=== PATIENT | male | born 1960 | race Caucasian/White ===

== ENCOUNTER → 2018-03-17 | Outpatient (CLI) | payer OTHER ==
[2018-03-17 14:05] LABS: ALBUMIN/GLOBULIN RATIO 1.29 (1.00-1.93); ALKALINE PHOSPHATASE 70 U/L (45-117); ALT/SGPT 39 U/L (12-78); ANION GAP 11 MEQ/L (8-16); AST/SGOT 17 U/L (7-37); BILIRUBIN,TOTAL 0.6 MG/DL (0.2-1.0); BLOOD UREA NITROGEN 15 MG/DL (7-18); CARBON DIOXIDE LEVEL 25 MEQ/L (21-32); CHLORIDE LEVEL 108 MEQ/L (98-107); CHOLESTEROL LEVEL 184 MG/DL (<200); CHOLESTEROL RISK RATIO 2.875 (<5); CREATININE FOR GFR 0.89 MG/DL (0.70-1.30); GLOMERULAR FILTRATION RATE > 60.0 (>56); GLUCOSE, FASTING 90 MG/DL (70-100); HDL CHOLESTEROL 64 MG/DL (>40); LDL CHOLESTEROL 105 MG/DL (<100); NON-HDL-C 120 MG/DL; POTASSIUM SERUM 4.3 MEQ/L (3.5-5.1); SODIUM LEVEL 144 MEQ/L (136-145); TOTAL PROTEIN 7.1 GM/DL (6.4-8.2); TRIGLYCERIDES LEVEL 74 MG/DL (<150)
== END ==
LOC: M WUC 09:47
DX: E78.5 Hyperlipidemia, unspecified (principal); I10 Essential (primary) hypertension
CPT/HCPCS: 80053

== ENCOUNTER → 2018-03-17 | Outpatient (CLI) | payer OTHER ==
[2018-03-18 14:20] LABS: PSA TOTAL 19.7 ng/mL (0.0-4.0)
== END ==
LOC: M WUC 09:44
DX: R97.20 Elevated prostate specific antigen [PSA] (principal)
CPT/HCPCS: 84154

== ENCOUNTER 2018-04-09 13:03 | Day surgery (SDC) | payer OTHER ==
[2018-04-09] MEDS: NS 1,000 ML IV (13:29)
[2018-04-09] MEDS ORDERED: PROPOFOL 200 MG/20 ML VIAL As Ordered (14:58)
[2018-04-09] MEDS ORDERED: LIDOCAINE 2% INJ 100 MG/5 ML SDV (FOR ANES.) As Ordered (14:58)
== END 2018-04-09 15:37 | disposition home or self-care (01) ==
LOC: M OPP 15:37
DX: K22.70 Barrett's esophagus without dysplasia (principal); I10 Essential (primary) hypertension; E78.5 Hyperlipidemia, unspecified; K21.9 Gastro-esophageal reflux disease without esophagitis; R12 Heartburn; N40.1 Benign prostatic hyperplasia with lower urinary tract symptoms; N41.1 Chronic prostatitis; Z80.0 Family history of malignant neoplasm of digestive organs; Z80.8 Family history of malignant neoplasm of other organs or systems; Z88.0 Allergy status to penicillin; Z91.013 Allergy to seafood; Z79.899 Other long term (current) drug therapy
CPT/HCPCS: 43239

== ENCOUNTER → 2018-04-29 | Outpatient (CLI) | payer OTHER ==
[2018-05-01 00:08] LABS: PSA TOTAL 24.1 ng/mL (0.0-4.0)
== END ==
LOC: M WUC 10:24
DX: R97.20 Elevated prostate specific antigen [PSA] (principal)
CPT/HCPCS: 84154

== ENCOUNTER → 2021-05-24 | Outpatient (CLI) | payer OTHER ==
[~2021-05-24] MED LIST: ATOR1TAB21 PO; DOXY100C3 PO; FLOM0.4C39 PO; LEVO500T4 PO; NAPR220C14 PO; OMEP1CAP73 PO; TERA5CAP3 PO
== END ==
LOC: M LABSMTC 09:12
PROVIDERS: ATTEND Anesthesiology
DX: Z01.812 Encounter for preprocedural laboratory examination (principal); Z20.822 Contact with and (suspected) exposure to COVID-19

== ENCOUNTER 2021-05-29 12:22 | Day surgery (SDC) | payer OTHER ==
[~2021-05-29] VITALS: Ht 167.6 cm; Wt 95.2 kg
[~2021-05-29 12:22] MED LIST changes: -DOXY100C3 PO; -FLOM0.4C39 PO; +LEVO500T3 PO; -LEVO500T4 PO; -NAPR220C14 PO; +NS 1,000 ML IV ONE
[2021-05-29] MEDS ORDERED: GLYCOPYRROLATE INJ 0.2 MG/ML 2 ML VIAL As Ordered ONE ×2 (14:33→14:34)
[2021-05-29] MEDS ORDERED: LIDOCAINE 2% 100MG/5ML SDV (FOR ANES.) As Ordered ONE (14:33)
[2021-05-29] MEDS ORDERED: propofoL 200 MG/20 ML VIAL As Ordered ONE ×2 (14:34→14:40)
--- NOTE | 2021-05-29 14:52 | ROOR ---
Patient Name: Andres Vargas Procedure Date: 05/29/2021 2:36 PM Date of : 1960 Age: 61 Room: [facility] Gender: Male Note Status: Finalized Procedure: Upper GI endoscopy Indications: Surveillance for malignancy due to personal history of Montano's esophagus, Heartburn Providers: Kyle Degroot MD Referring MD: MAI MELO MD Requesting Provider: Medicines: Monitored Anesthesia Care Complications: No immediate complications. Procedure: Pre-Anesthesia Assessment: - The heart rate, respiratory rate, oxygen saturations, blood pressure, adequacy of pulmonary ventilation, and response to care were monitored throughout the procedure. The Endoscope was introduced through the mouth, and advanced to the second part of duodenum. The upper GI endoscopy was accomplished without difficulty. The patient tolerated the procedure well. Findings: The esophagus and gastroesophageal junction were examined with white light and narrow band imaging (NBI) from a forward view and retroflexed position. There were esophageal mucosal changes consistent with short-segment Montano's esophagus. These changes involved the mucosa at the upper extent of the gastric folds (36 cm from the incisors) extending to the Z-line (34 cm from the incisors). [place]-colored mucosa was present and no visible abnormalities were present. The maximum longitudinal extent of these esophageal mucosal changes was 2 cm in length. Mucosa was biopsied with a cold forceps for histology. One specimen bottle was sent to pathology. A small hiatal hernia was present. The entire examined stomach was normal. The examined duodenum was normal. Impression: - Esophageal mucosal changes consistent with short-segment Montano's esophagus (2 cm, smooth, no nodularity). Biopsied. - Small hiatal hernia. - Normal stomach. - Normal examined duodenum. Recommendation: - Await pathology results. - Telephone endoscopist for pathology results in 2 weeks. - Repeat upper endoscopy in 3 years for surveillance of Montano's esophagus. - Use Prilosec (omeprazole) 20 mg PO daily indefinitely. Procedure Code(s): --- Professional --- 10698, Esophagogastroduodenoscopy, flexible, transoral; with biopsy, single or multiple Diagnosis Code(s): --- Professional --- R12, Heartburn K44.9, Diaphragmatic hernia without obstruction or gangrene K22.70, Montano's esophagus without dysplasia CPT copyright 2019 [employer]. All rights reserved. The codes documented in this report are preliminary and upon stem crusher review may be revised to meet current compliance requirements. Kyle Degroot MD Kyle Degroot MD 05/29/2021 2:52:00 PM Electronically signed by Kyle Degroot MD Number of Addenda: 0 Note Initiated On: 05/29/2021 2:36 PM Estimated Blood Loss: Estimated blood loss: none.
[2021-05-29 15:20] VITALS: BP 182/102
== END 2021-05-29 15:50 | disposition home or self-care (01) ==
LOC: M OPP 12:22
PROVIDERS: ATTEND Internal Medicine Gastroenterology
DX: K22.70 Barrett's esophagus without dysplasia (principal); K44.9 Diaphragmatic hernia without obstruction or gangrene; R12 Heartburn; Z80.0 Family history of malignant neoplasm of digestive organs; Z79.899 Other long term (current) drug therapy; Z88.0 Allergy status to penicillin; Z91.013 Allergy to seafood

== ENCOUNTER 2021-06-01 22:41 | Inpatient (IN) | payer OTHER ==
[~2021-06-01] VITALS: Ht 167.6 cm; Wt 94.4 kg
[~2021-06-01 22:41] MED LIST changes: -NS 1,000 ML IV ONE
[2021-06-02 00:35] VITALS: BP 163/92
--- NOTE | 2021-06-02 00:54 | HPEPDOC ---
[facility] Medical History & Physical Date of Admission Jun 02, 2021 Date of Service: Jun 02, 2021 History and Physical CHIEF COMPLAINT: urinary retention HISTORY OF PRESENT ILLNESS: 61 yo M with a PMHx of HTN, GERD/Montano's esophagus, BPH, was transferred from [place] [facility] to [facility] for urology evaluation. Patient developed dysuria, lower abdominal pain and incomplete voiding on 05/31/21, the day after he underwent an EGD for eval of his Montano's esophagus. He went to his PCP office, where he was prescribed a course of doxycycline and aleve for pain control. His abdominal pain became worse, and he was unable to void. On arrival to ER at [place], bladder scan showed ~ 850cc of urine. A fo sharon catheter was inserted and drained 925 cc of urine. Patient's chemistry panel revealed a Cr 6.2; BUN 47 and a GFR 10. He had a mild leukocytosis of 13.4. Urinalysis revealed microscopic hematuria but otherwise no markers of infection. Renal US showed mild hydronephrosis of the L kidney, and a 17 mm peripheral upper pole calculus. CT abdomen pelvis showed L hydroureteronephrosis to the level proximal ureter without ductal obstructive process. There is also mildly dilated distal right and left ureters with periureteral stranding. Patient is been under hospitalist service with urology consultation; Dr. Esparza was contacted and will see the patient in the morning. Of note, patient does report a history of BPH, presently on Terazosin. He states he had a prostate biopsy approximately 1.5 years ago in [place] and has previously been followed [facility] in [place]. He also reports a history of elevated PSA in the 20 range. He does not have a family history of prostate cancer. PAST MEDICAL HISTORY: HTN GERD BPH PAST SURGICAL HISTORY: prostate bx 1.5 years ago in [place], [place] SOCIAL HISTORY: Denies smoking, illicit drug use occasional glass of wine with dinner FAMILY HISTORY: Brother - esophageal cancer, ALLERGIES: Please see below. REVIEW OF SYSTEMS: 10 point ROS conducted, relevant findings are noted in HPI HOME MEDICATIONS: Please see below. PHYSICAL EXAMINATION: VITAL SIGNS: please see below General: NAD, comfortable HEENT: PERRLA, EOMI, sclerae clear Neck: supple, normal ROM, no JVD Respiratory: lungs CTAB, no wheeze, no rales, no crackles CVS: RRR, normal S1, S2, no murmurs Abdo: soft, no masses, no hepatosplenomegaly, BS+, no rebound tenderness Extremities: no edema, pulses 2+ MSK: no joint deformities, normal ROM Neuro: no focal neuro deficits, moving all 4 extremities, CN2-12 intact. Strength 5/5 in all 4 extremities. No nystagmus. Psych: calm, cooperative, AAO x 3 LABORATORY DATA: See below. MICROBIOLOGY: Please see below. ASSESSMENT: 61 yo M with a PMHx of HTN, GERD/Montano's esophagus, BPH, was transferred from [facility] to [facility] for urology evaluation due to urinary retention likely from bladder outlet obstruction, resulting in L hydronephrosis and acute renal failure. . PLAN: #Acute renal failure 2/2 likely bladder obstruction vs ureteral stones resulting in L hydroureteronephrosis - unable to void for ~48 hours, severe suprapubic abdominal pain - bladder scan 850cc. Rothman inserted, drained 925 cc clear urine. Microscopic hematuria - patient has been on doxycycline, UA negative for infection - at [place] chemistry shows Cr 6.2. BUN 47. GFR 10 - Mild leukocytosis 13.5. - Renal US showed L hydronephrosis; bilateral distal dilation of ureters, R upper pole coretx calculus non obstructing - Urology consult placed, d/w Dr. Esparza - keep rothman in place. C/w IVF hydration, NS 150 cc/hr - repeat BMP shows Cr 2.05. UA showing mild pyuria. - will start on ceftriaxone. Patient was previously prescribed doxy by his PCP due to dysuria. - repeat BMP - started patient on flomax. Will continue terazosin for now - ordered PSA for AM. - will avoid use of finasteride, until definitive biopsy if indicated to r/o malignancy - will await final recs from urology - NPO overnight in event of possible surgical intervention #HTN - takes terazosin #GERD/Montano's esophagus - s/p EGD by Dr. Degroot on 05/29/21 - reviewed path report: intestinal metaplasia, negative for dysplasia DVT ppx - SCDs. TEDs. Home Medications Scheduled Doxycycline Hyclate (Doxycycline Hyclate) 100 Mg Capsule, 100 MG PO BID STARTED 05/30/21 X 21 DAYS Omeprazole (Omeprazole) 20 Mg Cap, 20 MG PO DAILY Terazosin HCl (Terazosin HCl) 5 Mg Cap, 5 MG PO BID Scheduled PRN Naproxen Sodium (Aleve) 220 Mg Capsule, 220 MG PO BID PRN for PAIN Allergies Coded Allergies: Penicillins (Verified Allergy, Unknown, 05/23/21) Shrimp (Verified Allergy, Unknown, hives around neck, 05/23/21) A-FIB/CHADSVASC A-FIB History Current/History of A-Fib/PAF?: No BEVERLY SIU MD Jun 02, 2021 00:54
[2021-06-02] MEDS ORDERED: ACETAMINOPHEN TAB 650MG DOSE (2X325MG) PO PRN (00:55)
[2021-06-02] MEDS ORDERED: MOM 30ML SUSPENSION UDC PO PRN (00:55)
[2021-06-02] MEDS ORDERED: MAALOX 30 ML SUSP *UDC PO PRN (00:55)
[2021-06-02] MEDS ORDERED: NAPR220C14 PO (01:23)
[2021-06-02] MEDS ORDERED: DOXY100C3 PO (01:23)
[2021-06-02] MEDS ORDERED: HOME MED LIST COMPLETE! XX SCH (01:25)
[2021-06-02] MEDS: NS 1,000 ML IV SCH ×3 (01:27→16:59)
[2021-06-02 02:36] LABS: BASO % 0.5 % (0.0-1.0); EOS # 0.2 10^3/uL (0.0-0.5); EOS % 2.4 % (0.0-3.0); HEMATOCRIT 39.4 % (42.0-52.0); HEMOGLOBIN 13.1 g/dl (13.5-17.5); LYMPH % 12.4 % (24.0-44.0); MEAN CORPUSCULAR HEMOGLOBIN 30.3 pg (27.0-33.0); MEAN CORPUSCULAR HGB CONC 33.2 g/dl (32.0-36.5); MONO # 0.9 10^3/uL (0.0-0.8); MONO % 10.2 % (2.0-8.0); NEUTROPHILS # 6.2 10^3/uL (1.5-8.5); NEUTROPHILS % 74.1 % (36.0-66.0); PLATELET COUNT, AUTOMATED 238 10^3/uL (150-450); RED BLOOD COUNT 4.33 10^6/uL (4.30-6.10); WHITE BLOOD COUNT 8.4 10^3/uL (4.0-10.0)
[2021-06-02 03:02] LABS: CALCIUM LEVEL 8.2 MG/DL (8.8-10.2); CREATININE FOR GFR 2.05 MG/DL (0.70-1.30); GLOMERULAR FILTRATION RATE 35.4 (>49); POTASSIUM SERUM 4.3 MEQ/L (3.5-5.1); TOTAL PROTEIN 6.2 GM/DL (6.4-8.2)
[2021-06-02] MEDS ORDERED: cefTRIAXone SOD 1 GM in D5W MINI-BAG PLUS 50 ML IV SCH (04:00)
[2021-06-02] MEDS: CIPROFLOXACIN 400 MG in IV 1 EA IV SCH ×2 (04:53→18:25)
[2021-06-02 06:00] VITALS: BP 142/84
[2021-06-02] MEDS: OMEPRAZOLE 20 MG CAP PO SCH (08:40)
[2021-06-02] MEDS: TAMSULOSIN 0.4 MG CAP PO SCH (08:42)
[2021-06-02] MEDS: TERAZOSIN 5MG CAPSULE PO SCH ×2 (08:42→20:16)
--- NOTE | 2021-06-02 11:23 | IPNPDOC ---
Text Note Date of Service The patient was seen on 06/02/21. NOTE SUBJECTIVE: -No acute events overnight OBJECTIVE: VITAL SIGNS: please see below General: NAD, comfortable HEENT: PERRLA, EOMI, sclerae clear Neck: supple, normal ROM, no JVD Respiratory: lungs CTAB, no wheeze, no rales, no crackles CVS: RRR, normal S1, S2, no murmurs Abdo: soft, no masses, no hepatosplenomegaly, BS+, no rebound tenderness Extremities: no edema, pulses 2+ MSK: no joint deformities, normal ROM Neuro: no focal neuro deficits, moving all 4 extremities, CN2-12 intact. Strength 5/5 in all 4 extremities. No nystagmus. Psych: calm, cooperative, AAO x 3 LABORATORY DATA: Reviewed MICROBIOLOGY: Please see below. ASSESSMENT: 61 yo M with a PMHx of HTN, GERD/Montano's esophagus, BPH, was transferred from [facility] to [facility] for urology evaluation due to urinary retention likely from bladder outlet obstruction, resulting in L hydronephrosis and acute renal failure. . PLAN: #Acute renal failure 2/2 likely bladder obstruction vs ureteral stones resulting in L hydroureteronephrosis - unable to void for ~48 hours, w/ severe suprapubic abdominal pain - Rothman inserted, drained 925 cc clear urine w/ microscopic hematuria - patient has been on doxycycline? of a presumed UTI - at [place] chemistry showed Cr 6.2. BUN 47. GFR 10 - Mild leukocytosis 13.5. Will continue cipro IV - Renal US showed L hydronephrosis; bilateral distal dilation of ureters, R upp er pole coretx calculus non obstructing - Urology consult placed, d/w Dr. Esparza - keep rothman in place. C/w IVF hydration, NS 150 cc/hr - repeat BMP here showed Cr 2.05. UA showing mild pyuria. - started patient on flomax. Will continue terazosin for now - f/u PSA - will await final recs from urology #potential UTI: -continue cipro as po #GERD/Montano's esophagus - s/p EGD by Dr. Degroot on 05/29/21 - reviewed path report: intestinal metaplasia, negative for dysplasia DVT ppx - SCDs. TEDs. VS,Fishbone, I+O VS, Fishbone, I+O Laboratory Tests 06/02/21 02:21 Vital Signs Date Time Temp Pulse Resp B/P (MAP) Pulse Ox O2 Delivery O2 Flow Rate FiO2 06/02/21 08:42 159/98 06/02/21 06:00 98.0 79 14 96 Room Air I&O- Last 24 Hours up to 6 AM 06/02/21 06:00 Intake Total 1150 ml Output Total 975 ml Balance 175 ml ELIJAH AGUERO MD Jun 02, 2021 09:09
[2021-06-02 14:00] VITALS: BP 153/74
[2021-06-02 22:00] VITALS: BP 155/75
[2021-06-03] MEDS: NS 1,000 ML IV SCH ×2 (00:37→09:10)
[2021-06-03] MEDS: CIPROFLOXACIN 400 MG in IV 1 EA IV SCH (04:07)
[2021-06-03 06:00] VITALS: BP 144/89
[2021-06-03 06:27] LABS: HEMATOCRIT 38.6 % (42.0-52.0); HEMOGLOBIN 12.5 g/dl (13.5-17.5); MEAN CORPUSCULAR HEMOGLOBIN 30.2 pg (27.0-33.0); MEAN CORPUSCULAR HGB CONC 32.4 g/dl (32.0-36.5); MEAN CORPUSCULAR VOLUME 93.2 fl (80.0-96.0); PLATELET COUNT, AUTOMATED 231 10^3/uL (150-450); RED BLOOD COUNT 4.14 10^6/uL (4.30-6.10); WHITE BLOOD COUNT 6.2 10^3/uL (4.0-10.0)
[2021-06-03 06:50] LABS: BLOOD UREA NITROGEN 15 MG/DL (7-18); CALCIUM LEVEL 8.1 MG/DL (8.8-10.2); CARBON DIOXIDE LEVEL 26 MEQ/L (21-32); CHLORIDE LEVEL 114 MEQ/L (98-107); GLOMERULAR FILTRATION RATE > 60.0 (>49); GLUCOSE, FASTING 96 MG/DL (70-100); POTASSIUM SERUM 4.5 MEQ/L (3.5-5.1); SODIUM LEVEL 145 MEQ/L (136-145)
--- NOTE | 2021-06-03 07:21 | SMCUROLCON ---
Urology Consultation General Date of Consultation 06/02/21 Reason For Consultation asked to see re retetion and dong History of Present Illness The patient is a -year-old with a past medical history for . Medications Current Medications Current Medications Medications (Trade) Dose Ordered Sig/Kris Route PRN Reason Start Time Stop Time Status Last Admin Dose Admin Acetaminophen (Tylenol Tab) 650 mg Q4H PRN PO MILD PAIN or TEMP > 101 06/02/21 00:55 Al Hydrox/Mg Hydrox/Simethicone (Mylanta) 30 ml DAILY PRN PO DYSPEPSIA 06/02/21 00:55 Ceftriaxone Sodium 1 gm/ Dextrose 50 ml @ 100 mls/hr Q24H IV 06/02/21 04:00 06/02/21 19:50 DC 06/02/21 03:51 Ciprofloxacin 400 mg/IV Miscellaneous Supplies 200 ml @ 200 mls/hr Q12H IV 06/02/21 05:00 06/03/21 04:07 Home Med (Home Med List Complete!) ASDIRECTED XX 06/02/21 01:25 06/02/21 01:33 DC Magnesium Hydroxide (Milk Of Magnesia) 30 ml DAILY PRN PO CONSTIPATION 06/02/21 00:55 Omeprazole (PriLOSEC) 20 mg DAILY PO 06/02/21 09:00 06/02/21 08:40 Sodium Chloride 1,000 ml @ 150 mls/hr Q6H40M IV 06/02/21 00:55 06/03/21 00:37 Tamsulosin HCl (Flomax) 0.4 mg DAILY PO 06/02/21 09:00 06/02/21 08:42 Terazosin HCl (Hytrin) 5 mg BID PO 06/02/21 09:00 06/02/21 20:16 Allergies Allergies: Coded Allergies: Penicillins (Verified Allergy, Unknown, 05/23/21) Shrimp (Verified Allergy, Unknown, hives around neck, 05/23/21) Vital Signs/I&O Vital Signs Date Time Temp Pulse Resp B/P (MAP) Pulse Ox O2 Delivery O2 Flow Rate FiO2 06/03/21 06:00 97.9 72 18 144/89 (107) 96 Room Air I&O- Last 24 Hours up to 6 AM 06/03/21 05:59 Intake Total 3485 ml Output Total 2600 ml Balance 885 ml Laboratory Data 24H Labs Laboratory Tests 2 06/03/21 05:51: Nucleated Red Blood Cells % (auto) 0.0, Anion Gap 5L, Glomerular Filtration Rate > 60.0, Calcium Level 8.1L CBC/BMP Laboratory Tests 06/03/21 05:51 Microbiology Microbiology 06/02/21 Urine Culture, Received Pending Assessment pt seen yesterday afternoon urinary retention retention after procedure with sedation despite terazosin h/o bph and prostate biopsies dong and hydronephrosis secondary to retention Plan discharge pt with catheter in place continue terazosin and tamsulosin will see pt in the office at which time a voiding trial will be conducted - office will call pt will arrange a local cystoscopy all d/w pt and he agrees thank you [phone] KENNY FARMER MD Jun 03, 2021 07:21
[2021-06-03] MEDS ORDERED: FLOM0.4C39 PO (08:28)
--- NOTE | 2021-06-03 08:38 | DS.PDOC ---
Discharge Summary General Date of Admission Jun 02, 2021 at 00:34 Date of Discharge 06/03/2021 Attending Physician: ELIJAH AGUERO MD Discharge Summary PROCEDURES PERFORMED DURING STAY: None ADMITTING DIAGNOSES: MARY. DISCHARGE DIAGNOSES: Obstructive uropathy MARY BPH HTN GERD mild hydronephrosis of the L kidney 17 mm peripheral upper pole L renal calculus, non-obstructive COMPLICATIONS/CHIEF COMPLAINT: Acute Renal Failure. HISTORY OF PRESENT ILLNESS: 61 yo M with a PMHx of HTN, GERD/Montano's esophagus, BPH, was transferred from [place] ER to [facility] for urology evaluation. Patient developed dysuria, lower abdominal pain and incomplete voiding on 05/31/21, the day after he underwent an EGD for eval of his Montano's esophagus. He went to his PCP office, where he was prescribed a course of doxycycline and aleve for pain control. His abdominal pain became worse, and he was unable to void. On arrival to ER at [place], bladder scan showed ~ 850cc of urine. A rothman catheter was inserted and drained 925 cc of urine. Patient's chemistry panel revealed a Cr 6.2; BUN 47 and a GFR 10. He had a mild leukocytosis of 13.4. Urinalysis revealed microscopic hematuria but otherwise no markers of infection. Renal US showed mild hydronephrosis of the L kidney, and a 17 mm peripheral upper pole calculus. CT abdomen pelvis showed L hydroureteronephrosis to the level proximal ureter without ductal obstructive process. There is also mildly dilated distal right and left ureters with periureteral stranding. HOSPITAL COURSE: He was admitted under hospitalist service with urology consultation and Dr. Esparza was consulted who on evaluation recommended discharge home with rothman to see in urology clinic and to continue his home terazosin and add on flomax. Of note, the patient did report a history of a prostate biopsy approximately 1.5 years ago in [place] and has previously been followed [facility] in [place] and a history of elevated PSA in the 20 range and a family history of prostate cancer, but his biopsy was negative for malignancy. His MARY resolved with relief of the obstruction. He is now being discharged home. OF NOTE, I am NOT sure why Mr. Vargas is on doxycycline for 21 days and I have been able to establish this. I will therefore continue this treatment on discharge as I am unsure what his PCP was treating and would not want to have an incomplete antibiotic course. DISCHARGE MEDICATIONS: Please see below. ALLERGIES: Please see below. PHYSICAL EXAMINATION ON DISCHARGE: VITAL SIGNS: Please see below. General: NAD, comfortable HEENT: PERRLA, EOMI, sclerae clear Neck: supple, normal ROM, no JVD Respiratory: lungs CTAB, no wheeze, no rales, no crackles CVS: RRR, normal S1, S2, no murmurs Abdo: soft, no masses, no hepatosplenomegaly, BS+, no rebound tenderness Extremities: no edema, pulses 2+ MSK: no joint deformities, normal ROM Neuro: no focal neuro deficits, moving all 4 extremities, CN2-12 intact. Strength 5/5 in all 4 extremities. Psych: calm, cooperative, AAO x 3 LABORATORY DATA: Please see below. IMAGING: None inhouse PROGNOSIS: Good ACTIVITY: As tolerated DIET: 2g sodium DISCHARGE PLAN: Home with rothman with close urology follow up. Now on terazosin and flomax per Dr. Esparza. DISPOSITION: Home DISCHARGE INSTRUCTIONS: Home with rothman with close urology follow up. Now on terazosin and flomax per Dr. Esparza. ITEMS TO FOLLOWUP ON ON OUTPATIENT: Urinary obstruction DISCHARGE CONDITION: Stable TIME SPENT ON DISCHARGE: 32 minutes. Vital Signs/I&Os Vital Signs Date Time Temp Pulse Resp B/P (MAP) Pulse Ox O2 Delivery O2 Flow Rate FiO2 06/03/21 06:00 97.9 72 18 144/89 (107) 96 Room Air I&O- Last 24 Hours up to 6 AM 06/03/21 06:00 Intake Total 3135 ml Output Total 2400 ml Balance 735 ml Laboratory Data Labs 24H Laboratory Tests 2 06/03/21 05:51: Nucleated Red Blood Cells % (auto) 0.0, Anion Gap 5L, Glomerular Filtration Rate > 60.0, Calcium Level 8.1L CBC/BMP Laboratory Tests 06/03/21 05:51 Microbiology Microbiology 06/02/21 Urine Culture, Received Pending Discharge Medications Scheduled Doxycycline Hyclate (Doxycycline Hyclate) 100 Mg Capsule, 100 MG PO BID, (Reported) STARTED 05/30/21 X 21 DAYS Omeprazole (Omeprazole) 20 Mg Cap, 20 MG PO DAILY, (Reported) Tamsulosin HCl (Flomax) 0.4 Mg Capsule, 0.4 MG PO DAILY Terazosin HCl (Terazosin HCl) 5 Mg Cap, 5 MG PO BID, (Reported) Scheduled PRN Naproxen Sodium (Aleve) 220 Mg Capsule, 220 MG PO BID PRN for PAIN, (Reported) Allergies Coded Allergies: Penicillins (Verified Allergy, Unknown, 05/23/21) Shrimp (Verified Allergy, Unknown, hives around neck, 05/23/21) ELIJAH AGUERO MD Jun 03, 2021 08:38
[2021-06-03 09:01] VITALS: BP 160/62
[2021-06-03] MEDS: OMEPRAZOLE 20 MG CAP PO SCH (09:01)
[2021-06-03] MEDS: TAMSULOSIN 0.4 MG CAP PO SCH (09:01)
[2021-06-03] MEDS: TERAZOSIN 5MG CAPSULE PO SCH (09:01)
== END 2021-06-03 10:38 | disposition home or self-care (01) | DRG 699 ==
LOC: M MSPAV 06-02 00:34
PROVIDERS: ADMIT Family Medicine; ATTEND Internal Medicine
DX: N13.9 Obstructive and reflux uropathy, unspecified (principal); N17.9 Acute kidney failure, unspecified; R33.9 Retention of urine, unspecified; I10 Essential (primary) hypertension; K21.9 Gastro-esophageal reflux disease without esophagitis; N40.1 Benign prostatic hyperplasia with lower urinary tract symptoms; K22.70 Barrett's esophagus without dysplasia; Z79.899 Other long term (current) drug therapy; Z88.0 Allergy status to penicillin; Z91.013 Allergy to seafood; N20.0 Calculus of kidney

== ENCOUNTER → 2021-10-12 | Outpatient (REF) | payer OTHER ==
[~2021-10-12] MED LIST changes: +DOXY100C3 PO; +FLOM0.4C39 PO; -LEVO500T3 PO; +LEVO500T4 PO; +NAPR220C14 PO
[2021-10-12 14:04] LABS: APPEARANCE, URINE HAZY (CLEAR); BACTERIA, URINE AUTO NEGATIVE (NEGATIVE); BILIRUBIN, URINE AUTO NEGATIVE (NEGATIVE); BLOOD, URINE BLOOD 2+ (NEGATIVE); COLOR, URINE YELLOW (YELLOW); GLUCOSE, URINE (UA) AUTO NEGATIVE (NEGATIVE); KETONE, URINE AUTO NEGATIVE (NEGATIVE); LEUKOCYTE ESTERASE, URINE AUTO 3+ (NEGATIVE); NITRITE, URINE AUTO NEGATIVE (NEGATIVE); PROTEIN, URINE AUTO 1+ mg/dL (NEGATIVE); RBC, URINE AUTO 13 /HPF (0-3); SPECIFIC GRAVITY URINE AUTO 1.013 (1.002-1.035); SQUAMOUS EPITHELIAL CELL UR AU 0 /HPF (0-6); UROBILINOGEN, URINE AUTO 0.2 mg/dL (0.0-2.0); WBC, URINE AUTO 130 /HPF (0-3)
== END ==
LOC: M LAB REF 13:25
PROVIDERS: ATTEND Urology
DX: Z01.818 Encounter for other preprocedural examination (principal); N40.1 Benign prostatic hyperplasia with lower urinary tract symptoms; N13.8 Other obstructive and reflux uropathy

== ENCOUNTER → 2021-10-15 | Outpatient (REF) | payer OTHER | LOC: M LAB REF 16:59 | PROVIDERS: ATTEND Urology | DX: N13.8 Other obstructive and reflux uropathy (principal); N40.1 Benign prostatic hyperplasia with lower urinary tract symptoms ==

== ENCOUNTER → 2022-02-20 | Outpatient (REF) | payer OTHER ==
[~2022-02-20] MED LIST changes: +LEVO1TAB39 PO; -LEVO500T4 PO
== END ==
LOC: M LABWUC 11:26
PROVIDERS: ATTEND Urology
DX: N31.8 Other neuromuscular dysfunction of bladder (principal)

== ENCOUNTER → 2022-10-31 | Outpatient (CLI) | payer OTHER ==
[2022-10-31 13:33] LABS: ALBUMIN 4.2 G/DL (3.2-5.2); ALKALINE PHOSPHATASE 72 U/L (46-116); ALT/SGPT 29 U/L (7.0-40); AST/SGOT 22 U/L (<34); BILIRUBIN,TOTAL 0.8 MG/DL (0.3-1.2); BLOOD UREA NITROGEN 15 MG/DL (9-23); CALCIUM LEVEL 9.6 MG/DL (8.3-10.6); CARBON DIOXIDE LEVEL 26 MMOL/L (20-31); CHLORIDE LEVEL 103 MMOL/L (98-107); CHOLESTEROL LEVEL 243 MG/DL (<200); CHOLESTEROL RISK RATIO 3.52 (<5); GLOMERULAR FILTRATION RATE > 60.0 (>49); GLUCOSE, FASTING 84 MG/DL (74-106); POTASSIUM SERUM 4.9 MMOL/L (3.5-5.1); PROSTATIC SPECIFIC AG MONITOR 0.36 NG/ML (< 4.00); SODIUM LEVEL 137 MMOL/L (136-145); TOTAL PROTEIN 7.1 G/DL (5.7-8.2); TRIGLYCERIDES LEVEL 70 MG/DL (<150)
== END ==
LOC: M WUC 10:48
PROVIDERS: ATTEND Internal Medicine
DX: E78.5 Hyperlipidemia, unspecified (principal); R97.20 Elevated prostate specific antigen [PSA]

== ENCOUNTER → 2023-12-11 | Outpatient (CLI) | payer OTHER | LOC: M CARPUL 08:08 | PROVIDERS: ATTEND Physician Assistant | DX: I63.9 Cerebral infarction, unspecified (principal) ==

== ENCOUNTER → 2024-01-07 | Outpatient (CLI) | payer OTHER | LOC: M PLAIMG 14:04 | PROVIDERS: ATTEND Physician Assistant | DX: I63.9 Cerebral infarction, unspecified (principal); J34.1 Cyst and mucocele of nose and nasal sinus; R90.82 White matter disease, unspecified ==

== ENCOUNTER → 2024-03-29 | Outpatient (CLI) | payer OTHER | LOC: M WUC 08:34 | PROVIDERS: ATTEND Urology | DX: Z12.5 Encounter for screening for malignant neoplasm of prostate (principal) ==

== ENCOUNTER → 2024-03-29 | Outpatient (CLI) | payer OTHER ==
[2024-03-29 10:30] LABS: BASO # 0.1 10^3/uL (0.0-0.2); BASO % 0.8 % (0.0-1.0); EOS # 0.1 10^3/uL (0.0-0.5); EOS % 1.7 % (0.0-3.0); HEMATOCRIT 44.9 % (42.0-52.0); LYMPH # 1.6 10^3/uL (1.5-5.0); LYMPH % 27.1 % (24.0-44.0); MEAN CORPUSCULAR HEMOGLOBIN 30.4 pg (27.0-33.0); MEAN CORPUSCULAR HGB CONC 33.4 g/dl (32.0-36.5); MEAN CORPUSCULAR VOLUME 91.1 fl (80.0-96.0); MONO # 0.5 10^3/uL (0.0-0.8); MONO % 7.8 % (2.0-8.0); NEUTROPHILS # 3.8 10^3/uL (1.5-8.5); NEUTROPHILS % 62.3 % (36.0-66.0); PLATELET COUNT, AUTOMATED 268 10^3/uL (150-450); RED BLOOD COUNT 4.93 10^6/uL (4.30-6.10); WHITE BLOOD COUNT 6.1 10^3/uL (4.0-10.0)
[2024-03-29 10:55] LABS: PROSTATIC SPECIFIC AG MONITOR 0.42 NG/ML (< 4.00)
[2024-03-29 11:01] LABS: ALKALINE PHOSPHATASE 85 U/L (46-116); ALT/SGPT 34 U/L (7.0-40); AST/SGOT 16 U/L (<34); BLOOD UREA NITROGEN 18 MG/DL (9-23); CALCIUM LEVEL 9.4 MG/DL (8.3-10.6); CARBON DIOXIDE LEVEL 27 MMOL/L (20-31); CHLORIDE LEVEL 105 MMOL/L (98-107); CHOLESTEROL LEVEL 171 MG/DL (<200); CHOLESTEROL RISK RATIO 2.72 (<5); CREATININE FOR GFR 1.01 MG/DL (0.70-1.30); GLOMERULAR FILTRATION RATE > 60.0 (>49); GLUCOSE, FASTING 96 MG/DL (74-106); HDL CHOLESTEROL 62.8 MG/DL (>40); LDL CHOLESTEROL 97.8 MG/DL (<100); NON-HDL-C 108.2 MG/DL; POTASSIUM SERUM 4.4 MMOL/L (3.5-5.1); SODIUM LEVEL 140 MMOL/L (136-145); TOTAL PROTEIN 7.3 G/DL (5.7-8.2); TRIGLYCERIDES LEVEL 52 MG/DL (<150)
== END ==
LOC: M WUC 08:32
PROVIDERS: ATTEND Internal Medicine
DX: E78.5 Hyperlipidemia, unspecified (principal); R97.20 Elevated prostate specific antigen [PSA]

== ENCOUNTER 2024-05-31 12:34 | Day surgery (SDC) | payer OTHER ==
[~2024-05-31] VITALS: Ht 167.6 cm; Wt 92.1 kg
[~2024-05-31 12:34] MED LIST changes: +ATOR80TA59 PO; +ECOT81TA5 PO; +OMEP-173 PO
[2024-05-31] MEDS ORDERED: propofoL 200 MG/20 ML VIAL As Ordered ONE (14:20)
[2024-05-31 14:42] VITALS: TEMP 97.7
[2024-05-31 15:05] VITALS: BP 150/81; O2SAT 97
== END 2024-05-31 15:15 | disposition home or self-care (01) ==
LOC: M OPP 12:34
PROVIDERS: ATTEND Internal Medicine Gastroenterology
DX: Z12.89 Encounter for screening for malignant neoplasm of other sites (principal); K21.00 Gastro-esophageal reflux disease with esophagitis, without bleeding; K44.9 Diaphragmatic hernia without obstruction or gangrene; Z87.19 Personal history of other diseases of the digestive system; I10 Essential (primary) hypertension; E78.00 Pure hypercholesterolemia, unspecified; Z86.73 Personal history of transient ischemic attack (TIA), and cerebral infarction without residual deficits; Z79.899 Other long term (current) drug therapy; Z79.82 Long term (current) use of aspirin; Z88.0 Allergy status to penicillin

== ENCOUNTER → 2024-06-02 | Outpatient (REF) | payer OTHER | LOC: M SFHCDERM 16:29 | PROVIDERS: ATTEND Dermatology | DX: L85.9 Epidermal thickening, unspecified (principal); D21.11 Benign neoplasm of connective and other soft tissue of right upper limb, including shoulder ==

== ENCOUNTER 2024-09-07 11:30 | Day surgery (SDC) | payer OTHER ==
[~2024-09-07] VITALS: Ht 167.6 cm; Wt 104.3 kg
[~2024-09-07 11:30] MED LIST changes: +MAGN400C PO; +MULT-40 PO; +VITA100093 PO
[2024-09-07 13:10] VITALS: TEMP 97.7
[2024-09-07 13:40] VITALS: BP 129/68; O2SAT 95
== END 2024-09-07 13:41 | disposition home or self-care (01) ==
LOC: M OPP 11:30
PROVIDERS: ATTEND Internal Medicine Gastroenterology
DX: K21.00 Gastro-esophageal reflux disease with esophagitis, without bleeding (principal); K22.70 Barrett's esophagus without dysplasia; K44.9 Diaphragmatic hernia without obstruction or gangrene; Z88.0 Allergy status to penicillin; Z79.899 Other long term (current) drug therapy

== ENCOUNTER → 2025-04-19 | Outpatient (CLI) | payer OTHER ==
[~2025-04-19] MED LIST changes: -FLOM0.4C39 PO; +TAMS-18 PO
== END ==
LOC: M PLAIMG 11:17
PROVIDERS: ATTEND Physician Assistant
DX: Z86.73 Personal history of transient ischemic attack (TIA), and cerebral infarction without residual deficits (principal); R90.82 White matter disease, unspecified

== ENCOUNTER → 2025-05-13 | Outpatient (CLI) | payer OTHER ==
[2025-05-13 15:13] LABS: ALT/SGPT 34.0 U/L (7.0-40); AST/SGOT 20.0 U/L (<34); CALCIUM LEVEL 9.3 MG/DL (8.3-10.6); CARBON DIOXIDE LEVEL 26.0 MMOL/L (20-31); CHLORIDE LEVEL 105.0 MMOL/L (98-107); CHOLESTEROL LEVEL 161.0 MG/DL (<200); CHOLESTEROL RISK RATIO 2.63 (<5); CREATININE FOR GFR 1.08 MG/DL (0.70-1.30); GLOMERULAR FILTRATION RATE 76.6 (>49); LDL CHOLESTEROL 87.5 MG/DL (<100); NON-HDL-C 99.9 MG/DL; POTASSIUM SERUM 4.5 MMOL/L (3.5-5.1); SODIUM LEVEL 140.0 MMOL/L (136-145); TRIGLYCERIDES LEVEL 62.0 MG/DL (<150)
[2025-05-13 15:15] LABS: BASO # 0.1 10^3/uL (0.0-0.2); BASO % 1.0 % (0.0-1.0); EOS # 0.1 10^3/uL (0.0-0.5); EOS % 1.9 % (0.0-3.0); LYMPH # 1.7 10^3/uL (1.5-5.0); LYMPH % 30.0 % (24.0-44.0); MONO # 0.6 10^3/uL (0.0-0.8); MONO % 10.3 % (2.0-8.0); NEUTROPHILS # 3.2 10^3/uL (1.5-8.5); NEUTROPHILS % 56.5 % (36.0-66.0); PLATELET COUNT, AUTOMATED 257 10^3/uL (150-450)
== END ==
LOC: M WUC 08:24
PROVIDERS: ATTEND Internal Medicine
DX: E78.5 Hyperlipidemia, unspecified (principal)